=== PATIENT | male | born 1980 | race Caucasian/White ===

== ENCOUNTER 2017-06-28 11:29 | Emergency (ER) | payer MEDICAID, OTHER ==
--- NOTE | 2017-06-28 11:46 | UC ---
Lower Extremity/Ankle HPI - HPI Summary HPI Summary: 36 year old male presents with complains of bilateral feet pain after buying a new pair of shoes. - History of Current Complaint Chief Complaint: UCLowerExtremity Stated Complaint: BILATERAL FEET COMPLAINT Time Seen by Provider: 06/28/17 11:46 Hx Obtained From: Patient Onset/Duration: Sudden Onset Severity Initially: Moderate Severity Currently: Moderate Pain Scale Used: 0-10 Numeric - 7 Aggravating Factor(s): Standing Alleviating Factor(s): Rest - Allergies/Home Medications Allergies/Adverse Reactions: Allergies Allergy/AdvReac Type Severity Reaction Status Date / Time Amoxicillin Allergy Unknown Verified 06/28/17 11:46 Reaction Details Penicillins Allergy Unknown Verified 06/28/17 11:46 Reaction Details PMH/Surg Hx/FS Hx/Imm Hx Previously Healthy: Yes - Surgical History Surgical History: None - Family History Known Family History: Positive: None - Social History Alcohol Use: None Review of Systems Constitutional: Negative Skin: Negative Eyes: Negative ENT: Negative Respiratory: Negative Cardiovascular: Negative Gastrointestinal: Negative Genitourinary: Negative Motor: Negative Neurovascular: Negative Musculoskeletal: Other: - bilateral medial foot pain Neurological: Negative Psychological: Negative All Other Systems Reviewed And Are Negative: Yes Physical Exam Triage Information Reviewed: Yes Vital Signs Reviewed: Yes Eye Exam: Normal ENT Exam: Normal Dental Exam: Normal Neck exam: Normal Neck: Positive: 1 Respiratory Exam: Normal Cardiovascular Exam: Normal Abdominal Exam: Normal Musculoskeletal: Positive: Other: - bilateral bunions Neurological Exam: Normal Psychological Exam: Normal Skin Exam: Normal Lower Extremity Course/Dx - Differential Dx/Diagnosis Provider Diagnoses: bilateral bunions. bilateral medial foot pain Discharge - Discharge Plan Condition: Stable Disposition: HOME Prescriptions: Ibuprofen TAB* [Motrin TAB* 800 MG] 800 mg PO Q6H #30 tab Patient Education Materials: Maik (ED) Referrals: Evaristo Vickers PA [Primary Care Provider] -
[2017-06-28 11:54] VITALS: BP 115/66
== END 2017-06-28 12:06 | disposition home or self-care (01) ==
LOC: UCCORT 11:29
DX: M21.612 Bunion of left foot (principal); M21.611 Bunion of right foot; M79.672 Pain in left foot; M79.671 Pain in right foot; Z88.0 Allergy status to penicillin
CPT/HCPCS: 99202; G0463